=== PATIENT | male | born 1985 | race Caucasian/White ===

== ENCOUNTER → 2016-07-06 | Outpatient (CLI) | payer OTHER ==
--- NOTE | 2016-07-09 21:34 | SLEEPCENT ---
DATE OF PROCEDURE: 07/06/2016 REFERRING PHYSICIAN: Agnes Saucedo Nocturnal polysomnography was performed for evaluation of sleep apnea syndrome symptoms in this patient with a history of excessive somnolence and nonrestorative sleep. 9 hours and 35 minutes of data were reviewed. There were 482 minutes of sleep identified. Sleep latency was short at 6.5 minutes. Rapid eye movement (REM) latency was prolonged at 149 minutes. Sleep architecture showed good progression but fragmentation was seen. Overall sleep efficiency was 86%. There was no reduction in REM time overall. The patient's EKG showed a sinus rhythm with an average heart rate of 58 beats per minute. Heart rate variability 50 to 80 beats per minute. EEG showed normal waveforms for awake and sleep with some coarsening in background. No focal events were seen. There were 44 respiratory events identified of 10 seconds in duration or greater for an apnea/hypopnea index of 5.4. The events were primarily obstructive and exclusively occurred in the supine posture. Arousals from respiratory events occurred 1.4 times per hour. Some limb activity was appreciated. Limb movement arousal index was borderline at 5.2. Oxygen saturations did dip into the mid 80s. IMPRESSION: Mild positional obstructive sleep apnea syndrome (G47.33). Apnea/hypopnea index 5.4. RECOMMENDATION: The patient should be encouraged to undergo sleep position retraining for avoidance of the supine posture. Should sleep symptoms persist, pressure therapy titration could be considered.
== END ==
LOC: M SLEEP 19:07
PROVIDERS: ATTEND Nurse Practitioner Adult Health
DX: G47.30 Sleep apnea, unspecified (principal)

== ENCOUNTER → 2016-08-16 | Outpatient (CLI) | payer OTHER ==
--- NOTE | 2016-08-19 15:07 | SLEEPCENT ---
DATE OF PROCEDURE: 08/16/2016 REFERRING PHYSICIAN: Agnes Saucedo Nocturnal polysomnography was performed for the titration of pressure therapy in this patient with obstructive sleep apnea syndrome. For testing, a [employer]Med AirFit F20 medium size mask was used. 4 cm of water pressure were applied to the circuit and the lights were extinguished. 8 hours and 14 minutes of data were reviewed. There were 477 minutes of sleep identified. Sleep latency was short at 4.5 minutes. Rapid eye movement (REM) sleep was normal at 72 minutes. Sleep architecture was good with 5 REM periods appreciated. Overall sleep efficiency 97.4%. The patient's EKG showed a sinus rhythm with an average heart rate of 53 beats per minute. EEG showed some waveforms for awake and sleep. Respiratory events were fully palliated with a CPAP pressure +5. Some limb activity was appreciated. Limb movement arousal index was 8.6, somewhat greater than on the diagnostic night. IMPRESSION: Obstructive sleep apnea syndrome (G47.33). RECOMMENDATION: Nightly use of pressure therapy, 5 cm of water.
== END ==
LOC: M SLEEP 19:14
PROVIDERS: ATTEND Nurse Practitioner Adult Health
DX: G47.33 Obstructive sleep apnea (adult) (pediatric) (principal)